=== PATIENT | male | born 1950 | race Caucasian/White ===

== ENCOUNTER → 2018-04-11 | Outpatient (CLI) | payer OTHER | END | disposition home or self-care (01) | LOC: PCVCCLINIC 13:48 | PROVIDERS: ATTEND Internal Medicine Cardiovascular Disease | DX: R93.1 Abnormal findings on diagnostic imaging of heart and coronary circulation (principal); E78.00 Pure hypercholesterolemia, unspecified; I45.2 Bifascicular block; R09.89 Other specified symptoms and signs involving the circulatory and respiratory systems; Z82.49 Family history of ischemic heart disease and other diseases of the circulatory system; Z79.82 Long term (current) use of aspirin | CPT/HCPCS: 93005; G0463 ==

== ENCOUNTER → 2018-04-23 | Outpatient (CLI) | payer OTHER ==
--- NOTE | 2018-04-23 15:56 | PCVCIMAG ---
EXAM: BILATERAL CAROTID DUPLEX INDICATION: Carotid Occlusive Disease. FINDINGS: Doppler Measurements (centimeters per second): RIGHT: Peak CCA-99, Peak ECA-93, Diastolic ICA-21, Peak ICA-78, ICA/CCA Ratio-0.8. LEFT: Peak CCA-105, Peak ECA-81, Diastolic ICA-25, Peak ICA-81, ICA/CCA Ratio-0.8. RIGHT CAROTID: The carotid bulb has no significant plaque. The proximal internal carotid artery shows no significant stenosis. The common carotid artery shows no significant stenosis. The external carotid artery shows no significant stenosis. LEFT CAROTID: The carotid bulb has no significant plaque. The proximal internal carotid artery shows no significant stenosis. The common carotid artery shows no significant stenosis. The external carotid artery shows no significant stenosis. Antegrade flow in both vertebral arteries. IMPRESSION: No significant stenosis of the right internal carotid artery with no significant plaque. No significant stenosis of the left internal carotid artery with no significant plaque. LOC:[place] [id number]
--- NOTE | 2018-04-23 16:14 | PCVCIMAG ---
EXAM: ULTRASOUND OF THE THYROID INDICATION: Thyroid nodules. FINDINGS: The right thyroid lobe measures 1.9 x 1.9 x 6.2 cm. The left thyroid lobe measures 1.8 x 2.3 x 5.3 cm. 0.9 x 0.9 x 1.1 cm well-circumscribed solid nodule lower pole right thyroid lobe is indeterminate. Nearby in the mid lateral right thyroid lobe is a 0.4 cm solid nodule. There is a 0.5 cm cystic nodule upper pole right thyroid lobe. There is a 0.5 x 1.0 cm solid nodule in the right side of the isthmus also indeterminate. There is a 0.9 x 0.9 x 1.1 cm slightly irregular solid nodule in the mid to lower left thyroid lobe posteriorly which is indeterminate. There is a 0.4 x 0.7 cm solid nodule in the mid thyroid lobe on the left. IMPRESSION: Generalized enlargement of the thyroid gland. Several solid nodules in the thyroid lobes as detailed above. In the right thyroid lobe is a 1.1 cm solid nodule in the lower pole and a second 1.0 cm solid nodule in the right side of the thyroid isthmus. In the left thyroid lobe is a 1.1 cm slightly irregular solid nodule in the mid/lower pole posteriorly. Further evaluation of these findings by ENT is suggested. LOC:[id number]
--- NOTE | 2018-04-24 10:09 | PCVCIMAG ---
APPROVED REPORT Study performed: 04/23/2018 14:47:49 Exam: Stress Echocardiogram Indication: elevated calcium score- 672, Bifascicular block, Dyspnea, HLP Stress Nurse: Debra Austin RN Status: routine Ht: 6 ft 0 in HR: 66 bpm BP: 134/82 mmHg Rhythm: Bifascicular block Procedure The patient underwent an Exercise Stress Test using the Pavan Protocol. Blood pressure, heart rate, and EKG were monitored. An Echocardiogram was performed by electronics technician in four stages in quad fashion. At peak stress, four selected images were obtained and placed side by side with resting images for comparison. Stress Test Details Stress Test: Exercise stress testing was performed using a Pavan protocol. HR Resting HR: 66 bpmMax Heart Rate (APMHR): 152 bpm Max HR Achieved: 166 bpmTarget HR (85% APMHR): 129 bpm % of APMHR: 109 Recovery HR: 94 bpm HR response to stress: Normal HR response to stress BP Resting BP: 134/82 mmHg Max BP: 184/76 mmHg Recovery BP: 130/84 mmHg ECG Resting ECG: Bifascicular block Stress ECG: Bifascicular block ST Change: Normal Arrhythmia: occasional PVC and short run of SVT that resolved Recovery ECG: Bifascicular block Recovery ST Change: Normal Clinical Reason for Termination: Maximal effort Stress Symptoms: Dyspnea Exercise duration: 9 min sec Highest Stage Achieved: Stage 3: 3.4 mph at 14% grade. Exercise capacity: 10.1 METs Overall Exercise Capacity for Age: Good Scale: Active Angina Score: None Pre-Stress Echo The resting Echocardiogram showed normal left ventricular contractility with an estimated Ejection Fraction of about >55%. Normal wall motion in all segments on baseline images. Post-Stress Echo The stress Echocardiogram showed normal left ventricular contractility with an estimated Ejection Fraction of about 65%. Normal augmentation of wall motion in all segments on post stress images. Clinical No clinical or ECG evidence for ischemia. Conclusion Clinical Response: Non-ischemic Exercise Capacity: Superior Stress ECG Response: Non-ischemic Stress Echo Images: Non-ischemic Mildly dilated aortic sinus of valsalva 4.2 cm and ascending aorta is mildly dilated to 3.9 cm. The left ventricle is normal in size and wall thickness in both the rest and stress images. Other Information Study Quality: Adequate <Conclusion> Mildly dilated aortic sinus of valsalva 4.2 cm and ascending aorta is mildly dilated to 3.9 cm. The left ventricle is normal in size and wall thickness in both the rest and stress images.
== END | disposition home or self-care (01) ==
LOC: PCVCIMAG 15:03
PROVIDERS: ATTEND Internal Medicine Cardiovascular Disease
DX: E04.2 Nontoxic multinodular goiter (principal); R09.89 Other specified symptoms and signs involving the circulatory and respiratory systems
CPT/HCPCS: 76536; 93325; 93351; 93880

== ENCOUNTER → 2019-04-23 | Outpatient (CLI) | payer OTHER | END | disposition home or self-care (01) | LOC: PCVCCLINIC 13:40 | PROVIDERS: ATTEND Internal Medicine Cardiovascular Disease | DX: E78.5 Hyperlipidemia, unspecified (principal); R93.1 Abnormal findings on diagnostic imaging of heart and coronary circulation; E78.00 Pure hypercholesterolemia, unspecified; I25.10 Atherosclerotic heart disease of native coronary artery without angina pectoris; Z79.82 Long term (current) use of aspirin | CPT/HCPCS: 36415; 80061; 93005; G0463 ==